=== PATIENT | male | born 1995 | race Caucasian/White ===

== ENCOUNTER 2016-09-15 17:35 | Emergency (ER) | payer BC ==
[~2016-09-15] VITALS: Ht 198.1 cm; Wt 96.8 kg
--- OUTSIDE RECORDS SUMMARY | 2016-09-15 17:40 | XMS REPORT | Continuity of Care Document ---
Author Author [facility] Address Unknown Phone Unavailable Allergies Medications Problems Date Dx Coded Attending Type Code Diagnosis Diagnosed By 09/23/2014 SADIQ PAK Ot 382.9 12/01/2015 SADIQ PAK Ot 382.9 OTITIS MEDIA NOS Procedures Results Encounters ACCT No. Visit Date/Time Discharge Status Pt. Type Provider Facility Loc./Unit Complaint [id number] 08/09/2014 18:07:00 2014 23:59:59 CLS Outpatient SADIQ PAK [facility] [id number] 09/15/2016 17:35:00 PEN Preadmit [facility] ED
--- OUTSIDE RECORDS SUMMARY | 2016-09-15 17:43 | XMS REPORT | Continuity of Care Document ---
Author Author [facility] Address Unknown Phone Unavailable Allergies Medications Problems Date Dx Coded Attending Type Code Diagnosis Diagnosed By 09/23/2014 SADIQ PAK Ot 382.9 12/01/2015 SADIQ PAK Ot 382.9 OTITIS MEDIA NOS Procedures Results Encounters ACCT No. Visit Date/Time Discharge Status Pt. Type Provider Facility Loc./Unit Complaint [id number] 08/09/2014 18:07:00 2014 23:59:59 CLS Outpatient SADIQ PAK [facility] [id number] 09/15/2016 17:39:00 ACT Emergency SHONNA VASQUEZ, JIMMY Truong [facility] ED
[2016-09-15] MEDS ORDERED: BACITRACIN OINTMENT 0.9 GM PACKET TOP ONE (17:45)
[2016-09-15] MEDS ORDERED: TETANUS, DIPTHERIA, PERTUSSIS (ADACELL) VACCINE 0.5 ML VIAL IM ONE (17:45)
[2016-09-15] MEDS ORDERED: ED- HYDROcodone/ACETAMINOPHEN 5MG/325MG (NORCO) 6 TABLETS/BTL PO ONE (17:55)
[2016-09-15] MEDS ORDERED: HYDR-3702 PO (17:56)
[2016-09-15 18:24] VITALS: BP 148/73
== END 2016-09-15 18:18 | disposition home or self-care (01) ==
LOC: ED 17:39
DX: S61.112A Laceration without foreign body of left thumb with damage to nail, initial encounter (principal); W26.0XXA Contact with knife, initial encounter; Y93.G1 Activity, food preparation and clean up; Y92.000 Kitchen of unspecified non-institutional (private) residence as the place of occurrence of the external cause
CPT/HCPCS: 90471; 90715; 99282; 99283